=== PATIENT | male | born 1945 | race Caucasian/White ===

== ENCOUNTER → 2020-11-18 08:34 | Outpatient (CLI) | payer MEDICARE, SELFPAY ==
--- NOTE | ~2020-11-18 | CT_ITS ---
EXAMINATION: CT lung screening DATE: 11/18/2020 08:52 INDICATION: Personal history of tobacco dependence TECHNIQUE: Computed tomography (CT) of the chest was performed without intravenous contrast. The dose -length product was 86.30 mGy-cm. Automated exposure control and iterative reconstruction technique w ere employed. COMPARISON: CT dated 06/27/2019 FINDINGS: There is chronic mild mediastinal lymphadenopathy, likely reactive. Heart size is normal. T here is atherosclerosis of the aorta and coronary arteries. No significant pleural or pericardial eff usion. Heart size is normal. Upper abdomen is unremarkable. There is severe chronic interstitial lung disease characterized by subpleural reticular and groundglass opacities, traction bronchiectasis and honeycombing in the lung bases. These findings are not significantly changed from prior study. No en dobronchial lesions. There is an irregular shaped soft tissue mass measuring 20.7 x 1.3 x 2.3 cm poss ibly in the superior segment of the right lower lobe. IMPRESSION: 1. Lung Rads category 4B, very suspicious: Recommend follow-up pet/CT and/or tissue sampling of right lung mass posterior medially, most likely in the superior segment right lower lobe. 2: Stable chronic interstitial lung disease with pattern consistent with usual interstitial pneumonia . Reviewed, dictated and finalized at location [facility]. [facility] IMPRESSION: 1. Lung Rads category 4B, very suspicious: Recommend follow-up pet/CT and/or ti ssue sampling of right lung mass posterior medially, most likely in the superio r segment right lower lobe. 2: Stable chronic interstitial lung disease with pattern consistent with usual interstitial pneumonia.
== END ==
PROVIDERS: PCP Family Medicine; Visit Provider Family Medicine
DX: Z12.2 Encounter for screening for malignant neoplasm of respiratory organs (principal); F17.210 Nicotine dependence, cigarettes, uncomplicated
CPT/HCPCS: 71271